=== PATIENT | female | born 1970 | race Native Hawaiian/Other Pacific Islander ===

== ENCOUNTER 2017-09-16 17:05 | Emergency (ER) | payer SELFPAY ==
[~2017-09-16] VITALS: Ht 149.9 cm; Wt 49.5 kg
[2017-09-16 17:12] VITALS: BP 151/70; TEMP 98.9
[2017-09-16] MEDS ORDERED: NORCO 325 MG-51 TAB PO (19:09)
[2017-09-16 19:24] VITALS: PULSE 62
== END 2017-09-16 19:24 | disposition home or self-care (01) ==
LOC: COL.ER 17:05
DX: S20.211A Contusion of right front wall of thorax, initial encounter (principal); W19.XXXA Unspecified fall, initial encounter